=== PATIENT | male | born 1935 | race Caucasian/White ===

== ENCOUNTER → 2019-01-01 | Outpatient (CLI) | payer MEDICARE, OTHER ==
[~2019-01-01] MED LIST: AMLO-98 PO; ASPI-715 PO; ATOR10TA24 PO; FINA5TAB67 PO; IOPAMIDOL 76% 100 ML INFUS BTL 100 ML ONE; SIMV-42 PO
--- NOTE | 2019-01-01 13:32 | RADIOLOGY IMAGING REPORT ---
FACILITY: [facility] PATIENT NAME: Dino Razo : 1935 MR: [id number] V: [id number] EXAM DATE: ORDERING PHYSICIAN: LACHO PRETTY TECHNOLOGIST: Location: [facility] [place] Patient: Dino Razo : 1935 Visit/Account:[id number] Date of Sevice: 01/01/2019 CT BRAIN WITH AND WITHOUT INDICATION: Amnesia COMPARISON: None available TECHNIQUE: Pre and postcontrast head CT performed with sagittal and coronal reformations. 75 mL Isovu e-370 injected. One of the following dose optimization techniques was utilized in the performance of this exam: automated exposure control; adjustment of the mA and/or kV according to patient size; or u se of iterative reconstruction technique. Specific details can be referenced in the facility's radio logy CT exam operational policy. FINDINGS: The basal cisterns, schuster-white differentiation and convexity sulci are maintained. No intracranial he morrhage, hydrocephalus or midline shift. Normal orbital soft tissues. Moderate parenchymal atrophy. Moderate patchy white matter hypoattenuation. Clear mastoid air cells. Small mucous retention cyst in the frontal sinus. Trace sphenoid sinus secretions. Normal osseous structures. No pathologic intracranial enhancement. No apparent significant vascular abnormality. IMPRESSION: 1. Moderate parenchymal atrophy and moderate chronic small vessel ischemic change. 2. Otherwise normal head CT without and with contrast. Report Dictated By: Robert Briscoe MD at 01/01/2019 1:01 PM Report E-Signed By: Robert Briscoe MD at 01/01/2019 1:23 PM WSN:[id number]
== END ==
LOC: CT 01:05
PROVIDERS: ATTEND Family Medicine
DX: I67.82 Cerebral ischemia (principal)
CPT/HCPCS: 70470; Q9967